=== PATIENT | male | born 1960 | race Caucasian/White ===

== ENCOUNTER 2017-02-19 15:15 | Observation (INO) | payer OTHER ==
[2017-02-19] VITALS (8 sets, daily range): BP systolic 151–203; BP diastolic 94–100; PULSE 68–78; RESP 18–20; TEMP 97.9–98.1; O2SAT 95–100
[~2017-02-19] VITALS: Ht 177.8 cm; Wt 115.0 kg
--- NOTE | 2017-02-19 15:34 | PD ---
HPI Chief Complaint: Chest Pain Time Seen by Provider: 15:30 Travel History International Travel<30 days: No Contact w/Intl Traveler<30days: No Traveled to known affect area: No History of Present Illness HPI Patient comes from the [place] for evaluation of chest pressure that he awoke with this morning. Patient states the pain is waxing and wanes, but does not go away completely. Patient reports pain is substernal and radiates across his chest. Denies any diaphoresis, shortness of breath, nausea, vomiting, back pain , fevers, abdominal pain, headache,numbness or tingling anywhere, neck pain, dizziness, change in vision, or previous symptoms like this. Patient states that he went to the [place] as he did not feel right. Patient states that he supposed to have an outpatient Holter monitor done at some point secondary to having intermittent palpitations over the past 3 weeks. Patient states this feels different than that. Patient states he thinks that this may be coming from his metoprolol he's been on for almost 3 months. Patient does take a full strength aspirin daily and reports taking it today. Patient states he refused nitroglycerin en route because he did not want the side effect of the headache. Patient denies seeing a welding process engineer for the patient. Reports past medical history is hypertension and hyperlipidemia. PFSH Past Medical History Hx Anticoagulant Therapy: Yes (325 ASPIRIN DAILY TOOK THIS AM ) Social History Alcohol Use: No Tobacco Use: No Substance Use: No Allergies-Medications (Allergen,Severity, Reaction): Coded Allergies: Ativan (Verified Allergy, Unknown, 02/19/17) Bee Sting (Verified Allergy, Unknown, 02/19/17) Demerol (Verified Allergy, Unknown, 02/19/17) Lisinopril (Verified Allergy, Unknown, 02/19/17) Review of Systems Except as stated in HPI: all other systems reviewed are Neg Physical Exam Narrative GENERAL: Well-developed, overly nourished, in no acute distress, and non-ill appearing. SKIN: Focused skin assessment warm and dry. HEAD: Atraumatic. Normocephalic. EYES: Pupils equal and round. EOMI. No scleral icterus. No injection or drainage. ENT: No nasal bleeding or discharge. Mucous membranes pink and moist. NECK: Trachea midline. No JVD. Supple. No nuclear rigidity. CARDIOVASCULAR: Regular rate and rhythm. No murmur appreciated. Radial pulses 2+, intact, and equal bilaterally. RESPIRATORY: No accessory muscle use. No respiratory distress. Clear to auscultation. Breath sounds equal bilaterally. GASTROINTESTINAL: Abdomen soft, non-tender, nondistended. Hepatic and splenic margins not palpable. No pulsatile mass. MUSCULOSKELETAL: No obvious deformities. No clubbing. No cyanosis. No edema. Full range of motion. NEUROLOGICAL: Awake and alert. No obvious cranial nerve deficits. Motor grossly within normal limits. Normal speech. PSYCHIATRIC: Appropriate mood and affect; insight and judgment normal. Data Data Last Documented VS Vital Signs Date Time Temp Pulse Resp B/P Pulse Ox O2 Delivery O2 Flow Rate FiO2 02/19/17 15:32 100 Room Air 02/19/17 15:20 97.9 68 20 203/98 Orders Electrocardiogram (02/19/17 15:26) Basic Metabolic Panel (Bmp) (02/19/17 15:26) Ckmb (Isoenzyme) Profile (02/19/17 15:26) Complete Blood Count With Diff (02/19/17 15:26) Magnesium (Mg) (02/19/17 15:26) Prothrombin Time / Inr (Pt) (02/19/17 15:26) Act Partial Throm Time (Ptt) (02/19/17 15:26) Troponin I (02/19/17 15:26) Ecg Monitoring (02/19/17 15:26) Bilateral Bp Monitoring (02/19/17 15:26) Iv Access Insert/Monitor (02/19/17 15:26) Oximetry (02/19/17 15:26) Oxygen Administration (02/19/17 15:26) Nitroglycerin 2% Oint (Nitroglycerin 2% (02/19/17 16:00) CKMB (02/19/17 15:30) CKMB% (02/19/17 15:30) Chest, Single Ap (02/19/17 ) Nitroglycerin 2% Oint (Nitroglycerin 2% (02/19/17 16:30) Admit Order (Ed Use Only) (02/19/17 16:58) Place In Observation (02/19/17 16:58) Activity Bed Rest With Brp (02/19/17 16:58) Vital Signs (Adult) Q4H (02/19/17 16:58) Cardiac Rhythm .As Directed (02/19/17 16:58) Notify Dr: Other .PRN (02/19/17 16:58) Notify DrSarah Parameters (02/19/17 16:58) Resp Oxygen Nasal Cannula (02/19/17 ) Ckmb (Isoenzyme) Profile (02/19/17 18:30) Ckmb (Isoenzyme) Profile (02/19/17 21:30) Troponin I (02/19/17 18:30) Troponin I (02/19/17 21:30) Electrocardiogram (02/19/17 18:30) Electrocardiogram (02/19/17 21:30) ^ Obtain (02/19/17 16:58) Sodium Chloride 0.9% Flush (Ns Flush) (02/19/17 17:00) Sodium Chloride 0.9% Flush (Ns Flush) (02/19/17 21:00) Chiropractic Neurologist / Telemetry ANNE.Q8H (02/19/17 16:58) Labs Laboratory Tests Test 02/19/17 15:30 White Blood Count 9.4 TH/MM3 Red Blood Count 5.61 MIL/MM3 Hemoglobin 15.6 GM/DL Hematocrit 46.8 % Mean Corpuscular Volume 83.5 FL Mean Corpuscular Hemoglobin 27.9 PG Mean Corpuscular Hemoglobin 33.4 % Concent Red Cell Distribution Width 13.8 % Platelet Count 241 TH/MM3 Mean Platelet Volume 8.9 FL Neutrophils (%) (Auto) 62.8 % Lymphocytes (%) (Auto) 23.7 % Monocytes (%) (Auto) 10.1 % Eosinophils (%) (Auto) 2.7 % Basophils (%) (Auto) 0.7 % Neutrophils # (Auto) 5.9 TH/MM3 Lymphocytes # (Auto) 2.2 TH/MM3 Monocytes # (Auto) 0.9 TH/MM3 Eosinophils # (Auto) 0.3 TH/MM3 Basophils # (Auto) 0.1 TH/MM3 CBC Comment DIFF FINAL Differential Comment Prothrombin Time 11.4 SEC Prothromb Time International 1.0 RATIO Ratio Activated Partial 26.3 SEC Thromboplast Time Sodium Level 139 MEQ/L Potassium Level 3.8 MEQ/L Chloride Level 99 MEQ/L Carbon Dioxide Level 30.2 MEQ/L Anion Gap 10 MEQ/L Blood Urea Nitrogen 16 MG/DL Creatinine 1.12 MG/DL Estimat Glomerular Filtration 68 ML/MIN Rate Random Glucose 86 MG/DL Calcium Level 9.2 MG/DL Magnesium Level 2.4 MG/DL Total Creatine Kinase 156 U/L Creatine Kinase MB 1.9 NG/ML Troponin I LESS THAN 0.02 NG/ML MDM Medical Decision Making Medical Screen Exam Complete: Yes Emergency Medical Condition: Yes Interpretation(s) EKG reviewed by Dr. Varela shows sinus rhythm with ventricular of 64. No STEMI. Differential Diagnosis ACS, arrhythmia, electrolyte abnormality, pneumonia, other Narrative Course Patient was seen and examined. Initial laboratory studies were obtained and reviewed. Patient had Nitropaste placed with minimal improvement of symptoms. Discussed patient with Dr. Varela, who saw and evaluated the patient is agreeable with plan of care and disposition. Discussed all findings and plan of care with patient, who is agreeable for admission to chest pain center for further treatment and evaluation. All questions were answered. Patient remained stable throughout ED course. Diagnosis Primary Impression: Chest pain Qualified Code: R07.9 - Chest pain, unspecified type Admitting Information Admitting Physician Requests: Observation Condition: Stable Good Bray February 19, 2017 15:34
[2017-02-19 15:58] LABS: AUTOMATED NEUTROPHIL # 5.9 TH/MM3 (1.8-7.7); BASOPHIL # 0.1 TH/MM3 (0-0.2); BASOPHIL % 0.7 % (0.0-2.0); EOSINOPHIL # 0.3 TH/MM3 (0-0.4); EOSINOPHIL % 2.7 % (0.0-4.0); HEMATOCRIT 46.8 % (39.0-51.0); HEMO FLAGS DIFF FINAL; LYMPH % 23.7 % (9.0-44.0); LYMPHOCYTE # 2.2 TH/MM3 (1.0-4.8); MEAN CELL VOLUME 83.5 FL (80.0-100.0); MEAN CORPUSCULAR HEMOGLOBIN 27.9 PG (27.0-34.0); MEAN CORPUSCULAR HGB CONC 33.4 % (32.0-36.0); MONO % 10.1 % (0.0-8.0); NEUT % 62.8 % (16.0-70.0); PLATELET COUNT 241 TH/MM3 (150-450); RED BLOOD COUNT 5.61 MIL/MM3 (4.50-5.90); RED CELL DISTRIBUTION WIDTH 13.8 % (11.6-17.2); WHITE BLOOD COUNT 9.4 TH/MM3 (4.0-11.0)
[2017-02-19] MEDS ORDERED: NITROGLYCERIN 2% OINT 1 GM PACKET TOP ONE ×2 (16:00→16:30)
[2017-02-19 16:11] LABS: ANION GAP 10 MEQ/L (5-15); BICARBONATE 30.2 MEQ/L (21.0-32.0); BLOOD UREA NITROGEN 16 MG/DL (7-18); CHLORIDE 99 MEQ/L (98-107); GLOMERULAR FILTRATION RATE 68 ML/MIN (>89); MAGNESIUM 2.4 MG/DL (1.5-2.5); POTASSIUM 3.8 MEQ/L (3.5-5.1); SODIUM (NA) 139 MEQ/L (136-145)
[2017-02-19 16:16] LABS: CREATINE KINASE 156 U/L (39-308)
[2017-02-19 16:22] LABS: APTT (PATIENT) 26.3 SEC (24.3-30.1); PROTHROMBIN TIME - PATIENT 11.4 SEC (9.8-11.6)
[2017-02-19 16:28] LABS: CKMB 1.9 NG/ML (0.5-3.6)
--- NOTE | 2017-02-19 16:51 | RADRPT ---
EXAM DATE/TIME: 02/19/2017 16:38 [place] COMPARISON: No previous studies available for comparison. INDICATIONS : Chest pain. MEDICAL HISTORY : None. SURGICAL HISTORY : None. ENCOUNTER: Initial ACUITY: 1 day PAIN SCORE: 0/10 LOCATION: Bilateral chest FINDINGS: A single view of the chest demonstrates the lungs to be symmetrically aerated without evidence of mas s, infiltrate or effusion. The cardiomediastinal contours are unremarkable. Osseous structures are intact. CONCLUSION: Normal examination. Bin Wright Jr., MD on February 19, 2017 at 16:49 Board Certified Radiologist. This report was verified electronically.
[2017-02-19] MEDS ORDERED: SODIUM CHLORIDE 0.9% FLUSH 10 ML FLUSH IV FLUSH PRN (17:00)
--- NOTE | 2017-02-19 17:57 | HHI.HP ---
HPI Primary Care Physician [facility] Chief Complaint Chest tightness and palpations History of Present Illness 56-year-old male presents to the emergency room for further evaluation palpitations and chest tightness. 3 weeks complaints of intermittent palpitations. One week ago he was seen and evaluated at [place] urgent care for chest palpitations, states EKG and blood tests were completed at that time and he was later DC'd home that evening. An appointment was made and is scheduled for tomorrow a.m. for Holter monitor. Once home he did not have chest palpitations 3 days. Saturday and Saturday chest palpitations occurred more frequently. Episode lasted seconds. This morning after developing palpitations , chest tightness began. Chest tightness has been constant. No associated symptoms. Denies chest pain or pressure. No recent illness or recent travel. Recently started on metoprolol 2 months ago and is concerned this could be causing his feelings of palpitations. Review of Systems General: No fatigue,weakness, fever, chills, or recent illness change in appetite HEENT: No BUSH, no vision changes, no nasal congestion or drainage, no dysphasia CV: As stated above. No CP, pressure, intermittent leg pain. Describes palpitations as "my heart stops then flutters for a few seconds." RESP: No SOB, cough, wheeze, or recent URI GI: No nausea or vomiting, bowel changes, diarrhea, constipation, pain, distention, melena, blood in the stool. No change in appetite, no unintentional weight gain or weight loss : No dysuria, urgency, frequency EXT: No lower leg edema, no paraesthesias MS: No discomfort or change in ROM NEURO: No change in memory, dizziness, difficulty with balance, LOC, motor/ sensory deficits PSYCH: No anxiety or depression SKIN: No rashes, no concerning lesions Past Family Social History Allergies: Coded Allergies: Ativan (Verified Allergy, Unknown, 02/19/17) Bee Sting (Verified Allergy, Unknown, 02/19/17) Demerol (Verified Allergy, Unknown, 02/19/17) Lisinopril (Verified Allergy, Unknown, 02/19/17) Past Medical History Hypertension, hyperlipidemia, GERD, hiatal hernia Past Surgical History Tonsillectomy, cholecystectomy, right carpal tunnel surgery Reported Medications Metoprolol tartrate 25 mg twice a day Hydrochlorothiazide 25 mg daily Losartan 100 mg daily Simvastatin 20 mg daily Omeprazole 20 mg daily Multivitamin daily Garlic daily eye gtts-unsure of name or dose (fiance to bring in bottle) Active Ordered Medications Current Medications Medications (Trade) Dose Ordered Sig/Merlin Route Start Time Stop Time Status Last Admin (NS Flush) 2 ml UNSCH PRN IV FLUSH 02/19/17 17:00 (NS Flush) 2 ml BID IV FLUSH 02/19/17 21:00 Family History Noncontributory for early onset cardiovascular disease Social History Known hypertension and hyperlipidemia. No known diabetes. Quit smoking in 1988smoked 2 packs daily 2 years, 23 alcoholic drinks/weekly , denies any illegal drug use Retired law enforcement, endorses sedentary lifestyle Past cardiac testing No recent cardiac testing. 12 years ago exercise treadmill and CT angiogram unremarkable. Physical Exam Vital Signs Vital Signs Date Time Temp Pulse Resp B/P Pulse Ox O2 Delivery O2 Flow Rate FiO2 02/19/17 17:12 98 21 02/19/17 15:32 100 Room Air 02/19/17 15:32 100 Room Air 02/19/17 15:20 97.9 68 20 203/98 100 Physical Exam GENERAL: Alert WN, WD, NAD, pleasant, obese, male HEAD: NC, AT EYES: Sclera clear, pupils equal and round ENT: Mucous membranes pink and moist NECK: Supple, no masses, trachea midline CV: RRR, without murmur, rub, gallop, no JVD, S1-S2 no S3-S4. RESP: Clear lungs throughout bilateral, no crackles, wheeze, rhonchi, symmetrical chest rise, nonlabored, able to speak in full sentences ABD: Soft, NT, ND, no masses, positive bowel tones EXT: Pulses +24, no dependent edema MS: Normal tone 4 extremities, nontender, no obvious deformities, full range of motion NEURO: CN II through CN XII grossly intact, motor strength 5/5, gait WNL PSYCH: A+O 3, pleasant affect, appropriate speech, appropriate mood and affect , insight and judgment SKIN: Normal turgor, normal texture, no lesions, no rashes, brisk cap refill, even hair distribution Laboratory Laboratory Tests Test 02/19/17 15:30 White Blood Count 9.4 Red Blood Count 5.61 Hemoglobin 15.6 Hematocrit 46.8 Mean Corpuscular Volume 83.5 Mean Corpuscular Hemoglobin 27.9 Mean Corpuscular Hemoglobin 33.4 Concent Red Cell Distribution Width 13.8 Platelet Count 241 Mean Platelet Volume 8.9 Neutrophils (%) (Auto) 62.8 Lymphocytes (%) (Auto) 23.7 Monocytes (%) (Auto) 10.1 Eosinophils (%) (Auto) 2.7 Basophils (%) (Auto) 0.7 Neutrophils # (Auto) 5.9 Lymphocytes # (Auto) 2.2 Monocytes # (Auto) 0.9 Eosinophils # (Auto) 0.3 Basophils # (Auto) 0.1 CBC Comment DIFF FINAL Differential Comment Prothrombin Time 11.4 Prothromb Time International 1.0 Ratio Activated Partial 26.3 Thromboplast Time Sodium Level 139 Potassium Level 3.8 Chloride Level 99 Carbon Dioxide Level 30.2 Anion Gap 10 Blood Urea Nitrogen 16 Creatinine 1.12 Estimat Glomerular Filtration 68 Rate Random Glucose 86 Calcium Level 9.2 Magnesium Level 2.4 Total Creatine Kinase 156 Creatine Kinase MB 1.9 Troponin I LESS THAN 0.02 Result Diagram: 02/19/17 1530 02/19/17 1530 Imaging Last Impressions Chest X-Ray 02/19/17 0000 Signed Impressions: Service Date/Time: Sunday, February 19, 2017 16:38 - CONCLUSION: Normal examination. Bin Wright Jr., MD Course EKGs First EKG normal sinus rhythm, normal access, no ST or T-segment changes Assessment and Plan Assessment and Plan #1 Chest painadmitted to chest pain center. Will rule out with 3 sets of EKGs and cardiac enzymes. Was seen and evaluated by Dr. Magnus Welch in a.m. Discussed with patient the likelihood of an exercise stress test in the a.m., patient is agreeable to plan of care. #2 Hypertensioncontinue losartan, hydrochlorothiazide, metoprolol #3 Hyperlipidemiacontinue simvastatin #4 GERDcontinue omeprazole Emmy Michelle February 19, 2017 17:57
[2017-02-19] MEDS ORDERED: ACETAMINOPHEN 500 MG CPLT PO PRN (18:45)
[2017-02-19] MEDS ORDERED: NITROGLYCERIN 0.4 MG SL 25 TABS/BTL SL PRN (18:45)
[2017-02-19] MEDS ORDERED: ONDANSETRON HCL 4 MG/2 ML VIAL IV PRN (18:45)
--- NOTE | 2017-02-19 19:05 | PD ---
Data Data Last Documented VS Vital Signs Date Time Temp Pulse Resp B/P Pulse Ox O2 Delivery O2 Flow Rate FiO2 02/19/17 16:30 71 20 181/100 98 Room Air 02/19/17 15:20 97.9 Orders Electrocardiogram (02/19/17:) Basic Metabolic Panel (Bmp) (02/19/17 15:26) Ckmb (Isoenzyme) Profile (02/19/17:) Complete Blood Count With Diff (02/19/17:) Magnesium (Mg) (02/19/17:) Prothrombin Time / Inr (Pt) (02/19/17:) Act Partial Throm Time (Ptt) (02/19/17:) Troponin I (02/19/17) Ecg Monitoring (02/19/17) Bilateral Bp Monitoring (02/19/17:) Iv Access Insert/Monitor (02/19/17:) Oximetry (02/19/17:) Oxygen Administration (02/19/17:) Nitroglycerin 2% Oint (Nitroglycerin 2% (02/19/17 16:00) CKMB (02/19/17 15:30) CKMB% (02/19/17 15:30) Chest, Single Ap (02/19/17 ) Nitroglycerin 2% Oint (Nitroglycerin 2% (02/19/17 16:30) Admit Order (Ed Use Only) (02/19/17 16:58) Place In Observation (02/19/17 16:58) Activity Bed Rest With Brp (02/19/17 16:58) Vital Signs (Adult) Q4H (02/19/17 16:58) Cardiac Rhythm .As Directed (02/19/17 16:58) Notify Dr: Other .PRN (02/19/17 16:58) Notify . Parameters (02/19/17 16:58) Resp Oxygen Nasal Cannula (02/19/17 ) Ckmb (Isoenzyme) Profile (02/19/17 18:30) Ckmb (Isoenzyme) Profile (02/19/17 21:30) Troponin I (02/19/17 18:30) Troponin I (02/19/17 21:30) Electrocardiogram (02/19/17 18:30) Electrocardiogram (02/19/17 21:30) ^ Obtain (02/19/17 16:58) Sodium Chloride 0.9% Flush (Ns Flush) (02/19/17 17:00) Sodium Chloride 0.9% Flush (Ns Flush) (02/19/17 21:00) Claims Manager / Telemetry ANNE.Q8H (02/19/17 16:58) Labs Laboratory Tests Test 02/19/17 15:30 White Blood Count 9.4 TH/MM3 Red Blood Count 5.61 MIL/MM3 Hemoglobin 15.6 GM/DL Hematocrit 46.8 % Mean Corpuscular Volume 83.5 FL Mean Corpuscular Hemoglobin 27.9 PG Mean Corpuscular Hemoglobin 33.4 % Concent Red Cell Distribution Width 13.8 % Platelet Count 241 TH/MM3 Mean Platelet Volume 8.9 FL Neutrophils (%) (Auto) 62.8 % Lymphocytes (%) (Auto) 23.7 % Monocytes (%) (Auto) 10.1 % Eosinophils (%) (Auto) 2.7 % Basophils (%) (Auto) 0.7 % Neutrophils # (Auto) 5.9 TH/MM3 Lymphocytes # (Auto) 2.2 TH/MM3 Monocytes # (Auto) 0.9 TH/MM3 Eosinophils # (Auto) 0.3 TH/MM3 Basophils # (Auto) 0.1 TH/MM3 CBC Comment DIFF FINAL Differential Comment Prothrombin Time 11.4 SEC Prothromb Time International 1.0 RATIO Ratio Activated Partial 26.3 SEC Thromboplast Time Sodium Level 139 MEQ/L Potassium Level 3.8 MEQ/L Chloride Level 99 MEQ/L Carbon Dioxide Level 30.2 MEQ/L Anion Gap 10 MEQ/L Blood Urea Nitrogen 16 MG/DL Creatinine 1.12 MG/DL Estimat Glomerular Filtration 68 ML/MIN Rate Random Glucose 86 MG/DL Calcium Level 9.2 MG/DL Magnesium Level 2.4 MG/DL Total Creatine Kinase 156 U/L Creatine Kinase MB 1.9 NG/ML Troponin I LESS THAN 0.02 NG/ML MDM Supervised Visit with JOHAN: Yes Narrative Course The history, exam, and medical decision-making in the associated mid-level provider note were completed with my assistance. I reviewed and agree with the findings presented. I attest that I had a [id number] encounter with the patient on the same day, and personally performed and documented my assessment and findings in the medical record. *My assessment and Findings: 56-year-old man, sent from [place] with some chest pain. Is been evaluated for intermittent palpitations. He thinks he may have occult A. fib. Today he started getting tightness in his chest that he has not had before. Skin constant. He looks otherwise well. No history of coronary artery disease. Initial workup unremarkable. Plan admission to chest pain Center for further evaluation. Diagnosis Primary Impression: Chest pain Qualified Code: R07.9 - Chest pain, unspecified type Condition: Stable Christiano Varela MD February 19, 2017 19:05
[2017-02-19 19:22] LABS: CREATINE KINASE 139 U/L (39-308)
[2017-02-19 19:34] LABS: CKMB 2.3 NG/ML (0.5-3.6)
[2017-02-19] MEDS: SODIUM CHLORIDE 0.9% FLUSH 10 ML FLUSH IV FLUSH SCH (21:00)
[2017-02-19] MEDS: METOPROLOL TARTRATE 25 MG TAB PO SCH (21:32)
[2017-02-19 22:28] LABS: CREATINE KINASE 182 U/L (39-308)
[2017-02-19 22:41] LABS: CKMB 1.5 NG/ML (0.5-3.6)
[2017-02-20 01:38] VITALS: BP 117/71; PULSE 63; RESP 18; TEMP 97.9; O2SAT 95
[2017-02-20 04:22] VITALS: BP 121/76; PULSE 66; RESP 18; TEMP 97.7; O2SAT 97
[2017-02-20 04:29] VITALS: PULSE 61
[2017-02-20] MEDS: METOPROLOL TARTRATE 25 MG TAB PO SCH (08:17)
[2017-02-20 08:30] VITALS: PULSE 73
[2017-02-20 08:44] VITALS: BP 136/93; PULSE 71; RESP 16; TEMP 97.6; O2SAT 95
[2017-02-20] MEDS ORDERED: PANTOPRAZOLE SOD 20 MG DELAYED RELEASE TAB PO SCH (09:00)
[2017-02-20] MEDS ORDERED: LOSARTAN 50 MG TAB PO SCH (09:00)
[2017-02-20] MEDS ORDERED: ASPIRIN 325 MG TAB PO SCH (09:00)
[2017-02-20] MEDS ORDERED: HYDROCHLOROTHIAZIDE 25 MG TAB PO SCH (09:00)
[2017-02-20] MEDS: SODIUM CHLORIDE 0.9% FLUSH 10 ML FLUSH IV FLUSH SCH (09:33)
--- NOTE | 2017-02-20 09:38 | HHI.DCPOC ---
Discharge Care Plan Diagnosis: (1) Heart palpitations (2) Atypical chest pain (3) Hypertension Goals to Promote Your Health * To prevent worsening of your condition and complications * To maintain your health at the optimal level Directions to Meet Your Goals Take your medications as prescribed Follow your dietary instruction Follow activity as directed Keep your appointments as scheduled Take your immunizations and boosters as scheduled If your symptoms worsen call your PCP, if no PCP go to Urgent Care Center or Emergency Room Smoking is Dangerous to Your Health. Avoid second hand smoke Call the 24-hour hour crisis hotline for domestic abuse at Emmy Michelle February 20, 2017 09:38
[2017-02-20] MEDS ORDERED: LOSA100T PO (10:25)
[2017-02-20] MEDS ORDERED: METO25TA3 PO (10:25)
[2017-02-20] MEDS ORDERED: MULT1TAB84 PO (10:25)
[2017-02-20] MEDS ORDERED: OMEP20TA PO (10:25)
[2017-02-20] MEDS ORDERED: SIMV20TA PO (10:25)
[2017-02-20] MEDS ORDERED: HYDR25TA5 PO (10:25)
--- NOTE | 2017-02-21 10:54 | TR ---
Date Performed: 02/20/2017 Time Performed: 08:59:34 DOCTOR: Salbador Flores DRUG LIST: CLINICAL HISTORY: REASON FOR TEST: Chest pain REASON FOR ENDING: OBSERVATION: CONCLUSION: Mariusz protocol completed. Stopped sec to exceding target heart rate and leg fatigue. Maximum OU=700 Target HR Achieved=88.0% Maximum LY=566/92 Total Exercise Time=9:01. No ectopy. No re prod chest discomfort. No st t seg changes to sugg ischemia. Good exercise tolerance. Normal bp respo nse. Recovery quick and unremarkable. COMMENTS: Conclusion: Normal treadmill exercise. No evidence of ischemia.
--- NOTE | 2017-02-21 11:06 | EKG ---
Date Performed: 02/19/2017 Time Performed: 21:50:02 PTAGE: 56 years EKG: Sinus rhythm NORMAL ECG PREVIOUS TRACING : 02/19/2017 18.38 Since previous tracing, no significant change noted DOCTOR: Salbador Flores Interpretating Date/Time 02/21/2017 11:04:31
--- NOTE | 2017-02-21 15:08 | EKG ---
Date Performed: 02/19/2017 Time Performed: 18:38:41 PTAGE: 56 years EKG: Sinus rhythm NORMAL ECG PREVIOUS TRACING : 02/19/2017 15.26 Since previous tracing, no significant change noted DOCTOR: Salbador Flores Interpretating Date/Time 02/21/2017 15:06:38
--- NOTE | 2017-02-21 15:14 | EKG ---
Date Performed: 02/19/2017 Time Performed: 15:26:56 PTAGE: 56 years EKG: Sinus rhythm NORMAL ECG NO PREVIOUS TRACING DOCTOR: Salbador Flores Interpretating Date/Time 02/21/2017 15:13:01
== END 2017-02-20 11:46 | disposition home or self-care (01) ==
LOC: NEPE 15:15 → NEDA 17:03 → NEPGCP 19:24
PROVIDERS: ADMIT Internal Medicine Cardiovascular Disease; ATTEND Internal Medicine Cardiovascular Disease
DX: R07.9 Chest pain, unspecified (principal); I10 Essential (primary) hypertension; E78.5 Hyperlipidemia, unspecified; Z79.01 Long term (current) use of anticoagulants; R00.2 Palpitations; K21.9 Gastro-esophageal reflux disease without esophagitis; K44.9 Diaphragmatic hernia without obstruction or gangrene; Z79.899 Other long term (current) drug therapy
CPT/HCPCS: 71010; 80048; 82550; 82552; 83735; 84484; 85025; 85610; 85730; 93005; 93017; 99285; G0378